=== PATIENT | female | born 1950 | race Caucasian/White ===

== ENCOUNTER → 2018-01-14 | Outpatient (CLI) | payer MEDICARE | END | disposition home or self-care (01) | LOC: PCVCCLINIC 14:07 | DX: I10 Essential (primary) hypertension (principal); E78.5 Hyperlipidemia, unspecified; R07.2 Precordial pain; I44.7 Left bundle-branch block, unspecified; R94.31 Abnormal electrocardiogram [ECG] [EKG]; Z79.899 Other long term (current) drug therapy; Z79.82 Long term (current) use of aspirin | CPT/HCPCS: 80061; 93005; G0463 ==

== ENCOUNTER → 2018-08-26 | Outpatient (CLI) | payer MEDICARE ==
[~2018-08-26] MED LIST: REGADENOSON 0.4 MG/5 ML DISP.SYRIN. IV ONE
--- NOTE | 2018-08-28 10:22 | PCVCIMAG ---
APPROVED REPORT Study performed: 08/26/2018 07:54:28 EXAM: Comprehensive 2D, Doppler, and color-flow Echocardiogram Patient Location: Echo lab Status: routine BSA: 1.68 HR: 60 bpmBP: 144/82 mmHg Rhythm: LBBB Other Information Study Quality: Adequate Risk Factors: Cardiac Risk Factors: HTN Indications Chest Pain LBBB 2D Dimensions IVSd: 12.47 (7-11mm) LVDd: 37.44 mm PWd: 12.32 (7-11mm)Ascending Ao: 33.09 (22-36mm) LVDs: 29.11 (25-40mm) Left Atrium: 35.69 (27-40mm) Aortic Root: 28.68 mm LV Single Plane 4CH: 47.09 % LV Single Plane 2CH: 52.00 % Biplane EF: 48.1 % Volumes Left Atrial Volume (Systole) Single Plane 4CH: 30.86 mLSingle Plane 2CH: 50.96 mL LA ESV Index: 24.00 mL/m2 Aortic Valve AoV Peak Jay.: 1.53 m/s AO Peak Gr.: 9.36 mmHgLVOT Max P.53 mmHg LVOT Max V: 0.94 m/s Mitral Valve E/A Ratio: 0.5 MV Decel. Time: 289.14 ms MV E Max Jay.: 0.53 m/s MV A Jay.: 1.15 m/s IVRT: 179.93 ms Pulmonary Valve PV Peak Jay.: 0.89 m/sPV Peak Gr.: 3.14 mmHg Pulmonary Vein P Vein S: 0.25 m/sP Vein A: 0.34 m/s P Vein D: 0.40 m/sP Vein A Dur.: 138.4 msec P Vein S/D Ratio: 0.63 Tricuspid Valve TR Peak Jay.: 2.49 m/s TR Peak Gr.: 24.77 mmHg Left Ventricle The left ventricle is normal size. There is normal LV segmental wall motion. Mild concentric left ventricular hypertrophy. Left ventricular systolic function is mildly decreased with discordant septal motion. LVEF is 45-50%. Grade I - abnormal relaxation pattern. Right Ventricle The right ventricle is normal size. The right ventricular systolic function is normal. Atria The left atrium size is normal. The right atrium size is normal. Aortic Valve The aortic valve is normal in structure. No aortic regurgitation is present. There is no aortic valvular stenosis. Mitral Valve The mitral valve is normal in structure. Trace mitral regurgitation. No evidence of mitral valve stenosis. Tricuspid Valve The tricuspid valve is normal in structure. Mild tricuspid regurgitation with PAP of 32 mmHg. Pulmonic Valve The pulmonary valve is normal in structure. There is no pulmonic valvular regurgitation. Great Vessels The aortic root is normal in size. IVC is normal in size and collapses >50% with inspiration. Pericardium There is no pericardial effusion. There is no pleural effusion. <Conclusion> The left ventricle is normal size. LVEF is 50-55%. The aortic valve is normal in structure. The mitral valve is normal in structure. Trace mitral regurgitation. The tricuspid valve is normal in structure. Mild tricuspid regurgitation with PAP of 32 mmHg. The pulmonary valve is normal in structure. There is no pericardial effusion.
--- NOTE | 2018-08-29 12:51 | PCVCIMAG ---
APPROVED REPORT Imaging Protocol: Rest Tc-99m/Stress Tc-99m 1 day Study performed: 08/26/2018 08:47:55 Indication: Chest pain, LBBB Patient Location: Out-Patient Stress Nurse: Lesly Lynne RN, Delisa Pickens RN ND Tech:Zoey MIGUE YañezMT Ht: 5 ft 4 in Wt: 140 lbs BSA: 1.68 m2 HR: 78 bpm BP: 140/85 mmHg BMI: 24.0 Rhythm: Sinus Rhythm, LBBB Medical History Medical History: HTN, Hyperlipidemia Medications: Aspirin, Amlodipine, HCTZ Allergies: No known drug allergies Cardiac Risk Factors: Age Pretest Chest Pain Characteristics: No chest pain Exercise History: Physically active Resting Data Rest SPECT myocardial perfusion imaging was performed in supine position 45 minutes following the intravenous injection of 10.9 mCi of Tc-99m Sestamibi. Time of rest injection: 08 Date: 08/26/2018 Administration Route: IV Administration Site: Right AC Pharmacologic Stress Pharmacologic stress test was performed by injecting Regadenoson 0.4 mg IV push over 10-15 seconds immediately followed by the intravenous injection of 33.5 mCi of Tc-99m Sestamibi. Time of stress injection: 1015 Date: 08/26/2018 Administration Route: IV Administration Site: Right AC Gated Stress SPECT was performed 45 minutes after stress injection. The images were gated to evaluate regional wall motion and calculate left ventricular ejection fraction. Stress Test Details Stress Test: Pharmacologic stress was paired with low level exercise. Reason for pharmacologic stress test: LBBB. HRMax Heart Rate (APMHR): 153 bpm Resting HR: 78 bpmTarget HR (85% APMHR): 130 bpm Max HR Achieved: 103 bpm % of APMHR: 67 Recovery HR: 79 bpm BP Resting BP: 140/85 mmHg Max BP: 134/80 mmHg Recovery BP: 121/61 mmHg ECG Resting ECG: Sinus Rhythm, LBBB Stress ECG: Sinus Tachycardia, LBBB ST Change: Nondiagnostic V-pacing or LBBB Arrhythmia: VPC Recovery ECG: Sinus Rhythm, LBBB Recovery ST Change: Nondiagnostic V-pacing or LBBB Recovery Arrhythmia: VPC Clinical Reason for Termination: Completed protocol Stress Symptoms: Dyspnea Exercise duration: 4 min 00 sec Exercise capacity: 1.6 METs Symptoms resolved with caffeine. Stress ECG Conclusion Clinical: Non-ischemic Non-diagnostic exercise stress due underlying left bundle branch block Study Quality Study: Good Study Data Post stress, the left ventricular ejection was 70%.. SSS: 0 SRS: 0 SDS: 0 TID = 0.84. Perfusion No evidence of stress induced ischemia or prior myocardial infarction. Wall Motion Normal left ventricular size and function with no regional wall motion abnormalities. Nuclear Conclusion No evidence of stress induced ischemia or prior myocardial infarction. Normal left ventricular size and function with no regional wall motion abnormalities. Post stress, the left ventricular ejection was 70%. No prior study available for comparison. Interpreted by: Jethro Oviedo MD Electronically Approved: 08/26/2018 22:26:04 <Conclusion> Clinical: Non-ischemic Non-diagnostic exercise stress due underlying left bundle branch block
== END | disposition home or self-care (01) ==
LOC: PCVCIMAG 07:59
PROVIDERS: ATTEND Internal Medicine
DX: I07.1 Rheumatic tricuspid insufficiency (principal); I10 Essential (primary) hypertension; I44.7 Left bundle-branch block, unspecified; R07.9 Chest pain, unspecified; E78.5 Hyperlipidemia, unspecified; R07.2 Precordial pain
CPT/HCPCS: 78452; 93017; 93306; A9500; J2785